=== PATIENT | female | born 1960 | race Caucasian/White ===

== ENCOUNTER 2016-10-24 12:16 | Inpatient (IN) | payer BC ==
[~2016-10-24] VITALS: Ht 170.2 cm; Wt 109.3 kg
--- NOTE | ~2016-10-24 | HP ---
History And Physical [place] [id number] [facility] [place]. [address] NAME: IZZY NEWBY : 60 STATUS : ADM IN [facility]#: [id number] AGE: 56 ADM/REG DATE : 10/24/16 MR#: [id number] REPORT SERV DATE: 10/24/16 DICTATED BY: MARCUS PINON DATE: 10/24/16 REPORT STATUS : Draft TRANSCRIBED BY: LUCI DATE: 10/24/16 DATE OF ADMISSION: 10/24/2016 SENIOR STATISTICIAN: Dr. Hall, Dr. Minor, and is going to be Dr. Meléndez as well, and process manufacturing engineer, Dr. Leung. HISTORY OF PRESENT ILLNESS: This is a 56-year-old female with a history of psoriatic arthritis, comes in for shortness of breath. The patient says that for about three months now she has been having increasing dyspnea on exertion, but yet is able to do her activities of daily living and job without problems. A week ago, she traveled by car to the [facility], and she mentioned that she had a car ride five hours straight stop and then proceeded to do the next two hours going there. The patient started having some increase in shortness of breath, more dyspnea on exertion, and this heavy feeling on her chest. The patient did not enjoy her vacation in the beach much, finally got home, went to the emergency room, and she was found to have an acute PE. We are now called to admit the patient. She denies any nausea and vomiting. No dizziness, headache, problems with near syncopal or syncopal episode. No seizures. There are no new rashes, joint pains. She denies any urinary or bowel changes, although she mentioned that from time to time she has this bleeding AVMs in the pelvic area. She had an occasional bleeding with her bowel movement, the last one was a week ago and sometimes she just have some bleeding from her rectum in the last one week or about a month ago. No urinary changes. REVIEW OF SYSTEMS: The rest of the 14-point review of system is negative except as above. PAST MEDICAL HISTORY: Includes pelvic AVMs, wherein she underwent several treatments for venous embolization with the last one about seven years ago. She also had a cholecystectomy, rectal surgery, vein ligation, two C-sections, hysterectomy, psoriasis, psoriatic arthritis, hypertension, depression, ablation for an arrhythmia 20 years ago under the care of Dr. Minor. She has been doing well since then. ALLERGIES: SHE HAS NO KNOWN DRUG ALLERGIES. MEDICATIONS: Include Norvasc, atenolol, Cimzia, Cymbalta, and methotrexate. FAMILY HISTORY: Dad had PE, oral cancer, bladder cancer. Mom had hypertension, breast cancer, and Parkinson's. SOCIAL HISTORY: The patient started smoking three years ago. She has been smoking for a pack a day. Rarely drinks alcohol and no drug use. PHYSICAL EXAMINATION: GENERAL: The patient is alert and oriented x3, not in cardiopulmonary distress. VITAL SIGNS: Include blood pressure of 145/79, temperature 97.6, pulse rate of 90, respirations 16, and saturating 98% on room air. NECK: She has supple neck. No JVD or carotid bruits. No lymphadenopathy. History And Physical [address] [address] NAME: IZZY NEWBY : 60 STATUS : ADM IN [facility]#: [id number] AGE: 56 ADM/REG DATE : 10/24/16 MR#: [id number] REPORT SERV DATE: 10/24/16 DICTATED BY: MARCUS PINON DATE: 10/24/16 REPORT STATUS : Draft TRANSCRIBED BY: LUCI DATE: 10/24/16 HEENT: [place] conjunctivae. Anicteric sclerae. No pharyngeal erythema RESPIRATORY: Clear lungs. No rales. No wheezes. HEART: Regular rate and rhythm. No murmurs appreciated. Positive bowel sounds. Soft, nontender. No masses. Fair pulses. No edema. NEURO: Nonlocalizing. Of note, from time to time, I can see that her saturation on room air goes down to 81%. LABORATORIES: Reveals a chemistry within acceptable limits. Troponin and BNP are within normal limits. CBC within normal limits as well. INR normal. Occult blood done in the emergency room was negative. Chest x-ray; borderline cardiomegaly, no acute cardiopulmonary abnormality. CTA of the chest showing acute pulmonary embolus, filling defects in the bilateral upper and lower lobe pulmonary branches. No central embolus. Pulmonary parenchyma appears normal. Pleural spaces are clear. ASSESSMENT: 1. Acute bilateral pulmonary embolism. 2. Acute hypoxic respiratory failure. 3. Psoriatic arthritis with psoriasis. 4. History of arteriovenous malformations. 5. Hypertension. 6. Depression. 7. History of ablation for arrhythmia. PLAN: The patient will be admitted, and we will check the echo and ultrasound, and after discussing with the patient and her , they would prefer to start anticoagulation with NOACs despite the risk for bleeding for her AVMs. We will monitor the CBC and continue her home medications. This has been explained to her in front of her and they agreed and understood the plan. EZE/LUCI Marcus Pinon M.D. / [id number] CC: Madisyn Ferrera M.D.
--- NOTE | ~2016-10-24 | DS ---
Discharge Summary [facility] [address] [place]. [address] NAME: IZZY NEWBY : 60 STATUS : ADM IN [facility]#: [id number] AGE: 56 ADM/REG DATE : 10/24/16 MR#: [id number] REPORT SERV DATE: 10/26/16 DICTATED BY: MARCUS PINON DATE: 10/26/16 REPORT STATUS : Draft TRANSCRIBED BY: MODL DATE: 10/26/16 ADMISSION DATE: 10/24/2016 DISCHARGE DATE: TUBE MAN: Marcus Leung M.D. CARDIOLOGISTS: 1. Db Meléndez M.D. 2. Robles Hall M.D. FINAL DIAGNOSES: 1. Acute hypoxic respiratory failure. 2. Acute bilateral pulmonary embolism. 3. Decreased ejection fraction with history of arrhythmia. 4. Hypertension. 5. History of arteriovenous malformation. 6. Psoriasis and psoriatic arthritis. 7. Depression. 8. Tobacco abuse. DIAGNOSTIC EXAMS: Chest x-ray showing borderline cardiomegaly, no acute cardiopulmonary abnormality. CTA of the chest showing acute pulmonary embolus bilaterally. No central embolus demonstrated. Parenchyma appears normal. Pleural spaces are clear. Ultrasound of the lower extremities, no DVT. Echocardiogram, moderately decreased left ventricular systolic function with visually estimated EF of 40%, dilated left-sided structures. Normal right ventricular chamber size and systolic function. Mild mitral and tricuspid regurgitation. Mild EF. HOSPITAL COURSE: Please refer to the H and P done by myself dated on 10/24/2016. Briefly, this is a 56-year-old female with history of psoriatic arthritis comes in for shortness of breath. The patient had a history of arrhythmia with unclear whether it is ablation or cardioversion done more than 20 years ago. She also has history of AVM, has periodic pelvic and rectal bleeding. She started having some shortness of breath for about three months now, but it got worse about a week ago after she traveled by car for 7 hours to [place]. The patient then came back home, went to the emergency room and was found to have an acute PE. The patient got the above tests and was started on Eliquis. She was able to tolerate this without any bleeding and stable H and H. The patient is now breathing better. She is ambulating at 92% on room air, so we will be discharging her with the above diagnoses. She will be following up with this PCP, Dr. Tone Rodriguez, in one to two weeks. Follow up with Marcus Leung M.D. and Db Meléndez M.D. as scheduled. The patient will be on the following medications: Discharge Summary [place] [address] [facility] [address] NAME: IZZY NEWBY : 60 STATUS : ADM IN PAT#: [id number] AGE: 56 ADM/REG DATE : 10/24/16 MR#: [id number] REPORT SERV DATE: 10/26/16 DICTATED BY: MARCUS PINON. DATE: 10/26/16 REPORT STATUS : Draft TRANSCRIBED BY: LUCI DATE: 10/26/16 1. Norvasc 10 mg a day. 2. Eliquis 10 mg twice a day until 10/31/2016, then switch to Eliquis at 5 mg twice a day. 3. Tenormin 50 mg twice a day. 4. Cymbalta 60 mg at bedtime. 5. Methotrexate 15 mg on Saturday. 6. Nicotine patch 21 mg a day. 7. Cimzia as directed by Dr. Leung. The patient was told if she has any bleeding, feeling weak, increased shortness of breath, fever, not to hesitate to come back to the emergency room, this has been explained to the patient. She agreed and understood the plan. EZE/LUCI Marcus Pinon M.D. / [id number] CC: Madisyn Ferrera M.D.
[~2016-10-24 12:16] MED LIST: ATEN25 PO; CYMBALTA60 PO; HUMIR1 SC; L40 PO; NORV25 PO; PREM625 PO; PROTONIX PO; TRIBENZOR
[2016-10-24 13:10] LABS: BASOPHILS 0.3 %; BASOPHILS ABSOLUTE 0.03 10/3/uL (0.0-0.16); EOSINOPHILS 3.9 %; EOSINOPHILS ABSOLUTE 0.35 10/3/uL (0.0-0.53); ER CBC TAT 0 Hrs 03 Mins; HEMATOCRIT 38.7 % (36.0-48.0); HEMOGLOBIN 12.9 g/dL (12.0-16.0); IMMATURE GRANULOCYTES 0.3 %; IMMATURE GRANULOCYTES ABSOLUTE 0.03 10/3/uL (0.0-0.11); LYMPHOCYTES 39.9 %; LYMPHOCYTES ABSOLUTE 3.58 10/3/uL (0.67-4.30); MEAN CORPUS HGB CONC 33.3 g/dL (32.0-36.0); MEAN PLATELET VOLUME 9.4 fL (9.2-13.0); MONOCYTES 10.7 %; MONOCYTES ABSOLUTE 0.96 10/3/uL (0.21-1.20); NEUTROPHILS 44.9 %; NEUTROPHILS ABSOLUTE 4.02 10/3/uL (2.02-8.40); PLATELET COUNT 222 10/3/uL (150-400); RBC DISTRIBUTION WIDTH 14.1 % (12.0-16.0); RED CELL COUNT 4.16 10/6/uL (4.0-5.6)
[2016-10-24 13:11] LABS: MANUAL DIFF NO %
[2016-10-24 13:18] LABS: INTERNATIONAL NORMAL RATI 1.1 UNITS (-); PARTIAL THROMBO TIME 26.9 SEC (22.5-37.2); PROTIME (NOT ORD) 13.6 SEC (12.0-14.5)
[2016-10-24 13:29] LABS: BUN (BLOOD UREA NITROGEN) 11 MG/DL (6-23); CHEST PAIN PROFILE TAT 0 Hrs 22 Mins; CHLORIDE, SERUM 106 MMOL/L (96-112); CO2 (CARBON DIOXIDE) 29 MMOL/L (24-34); CREATININE 0.61 MG/DL (0.55-1.02); GFR AFRICAN AMERICAN 117 ML/MIN (>=60); GFR NON AFRICAN AMERICAN 101 ML/MIN (>=60); GLUCOSE, SERUM 76 MG/DL (60-99); POTASSIUM, SERUM 4.2 MMOL/L (3.5-5.3); SODIUM, SERUM 141 MMOL/L (135-148); TROPONIN I <0.02 NG/ML (<0.05)
[2016-10-24] MEDS ORDERED: CYMBALTA60 PO (15:32)
[2016-10-24] MEDS ORDERED: ATEN50 PO (15:32)
[2016-10-24] MEDS ORDERED: NORV10 PO (15:34)
[2016-10-24] MEDS ORDERED: CIMZIA SC (15:37)
[2016-10-24] MEDS ORDERED: MTX2.5 PO (15:37)
[2016-10-24 18:12] LABS: ALBUMIN 3.4 G/DL (3.5-5.0); ALKALINE PHOSPHATASE 87 U/L (45-117); DIRECT BILIRUBIN 0.1 MG/DL (0.0-0.4); INDIRECT BILIRUBIN(NOT ORDER) 0.3 MG/DL (0.1-0.9); SGOT(AST) 13 U/L (5-40); SGPT(ALT) 23 U/L (5-65); TOTAL BILIRUBIN 0.4 MG/DL (0-1.2); TOTAL PROTEIN 7.9 G/DL (6.0-8.5)
[2016-10-25 06:30] LABS: BASOPHILS 0.4 %; BASOPHILS ABSOLUTE 0.03 10/3/uL (0.0-0.16); EOSINOPHILS 5.2 %; EOSINOPHILS ABSOLUTE 0.36 10/3/uL (0.0-0.53); HEMATOCRIT 36.5 % (36.0-48.0); IMMATURE GRANULOCYTES 0.4 %; IMMATURE GRANULOCYTES ABSOLUTE 0.03 10/3/uL (0.0-0.11); LYMPHOCYTES 41.2 %; LYMPHOCYTES ABSOLUTE 2.83 10/3/uL (0.67-4.30); MEAN CORPUS HGB CONC 32.9 g/dL (32.0-36.0); MEAN CORPUSCULAR HEMOGLOB 30.7 pg (26.0-34.0); MEAN CORPUSCULAR VOLUME 93.4 fL (80-100); MEAN PLATELET VOLUME 9.5 fL (9.2-13.0); MONOCYTES ABSOLUTE 0.69 10/3/uL (0.21-1.20); NEUTROPHILS 42.8 %; NEUTROPHILS ABSOLUTE 2.93 10/3/uL (2.02-8.40); PLATELET COUNT 211 10/3/uL (150-400); RBC DISTRIBUTION WIDTH 14.3 % (12.0-16.0); RED CELL COUNT 3.91 10/6/uL (4.0-5.6); WHITE BLOOD CELLS 6.9 10/3/uL (4.5-10.5)
[2016-10-25 06:32] LABS: MANUAL DIFF NO %
[2016-10-26] MEDS ORDERED: ELIQUIS 5 MG TAB5 MG PO (11:19)
== END 2016-10-26 11:29 | disposition home or self-care (01) | DRG 175 ==
LOC: ER 12:16 → 5NO 15:55
PROVIDERS: Hospitalist; Internal Medicine
DX: I26.99 Other pulmonary embolism without acute cor pulmonale (principal); J96.01 Acute respiratory failure with hypoxia; L40.50 Arthropathic psoriasis, unspecified; Z90.49 Acquired absence of other specified parts of digestive tract; Z90.710 Acquired absence of both cervix and uterus; I10 Essential (primary) hypertension; F32.9 Major depressive disorder, single episode, unspecified; F17.210 Nicotine dependence, cigarettes, uncomplicated
CPT/HCPCS: 71020; 71275; 80048; 80076; 83735; 83880; 84484; 85025; 85610; 85730; 93005; 93306; 93970; 99285; A9270-GY; J8610; Q9967